=== PATIENT | female | born 1975 | race Caucasian/White ===

== ENCOUNTER → 2018-01-08 | Outpatient (CLI) | payer SELFPAY ==
[~2018-01-08] MED LIST: HYDR-1231 PO
--- NOTE | 2018-01-08 17:51 | Diagnostic Imaging Report ---
PROCEDURE: US Thyroid. TECHNIQUE: Multiple real-time grayscale images were obtained of the thyroid in various projections. INDICATION: Enlarged thyroid. COMPARISON: There are no prior studies available for comparison. FINDINGS: The thyroid gland is prominent. The right lobe measures 5.0 x 1.8 x 1.6 cm while the left lobe is estimated to be 4.3 x 1.4 x 1.3 cm (normal gland size 4-5 x 2 x 2 cm or less). Both the right and left lobes are homogeneous. There is no discrete solid or cystic mass within either lobe. However, there is a small 0.7 x 0.5 x 0.6 cm solid nodule in the mid portion of the isthmus. This finding is most likely benign. Even so, unless there are previous thyroid ultrasound examinations to demonstrate that this finding is stable, then a short-term (three-month) followup thyroid ultrasound exam should be obtained. During the course of this exam, our sonologist did note a 1.8 x 1.5 cm cystic mass in the right neck inferior to the level of the thyroid gland. There also appear to be a few dilated fluid-filled vessels in the right neck and at the corresponding level of the left neck. These findings are of uncertain etiology. I would recommend that CT of the neck be performed for further study. IMPRESSION: 1. The thyroid gland is not enlarged but prominent. There is a small subcentimeter solid nodule in the midportion of the isthmus. This finding is most likely benign. Recommendations as above. 2. CT would be recommended for further evaluation of the cystic mass in the lower neck on the right and for the fluid-filled vessels on each side of the neck. Dictated by: Dictated on workstation # [id number]
== END ==
LOC: RAD 15:01
PROVIDERS: ATTEND Nurse Practitioner Family
DX: E04.1 Nontoxic single thyroid nodule (principal)
CPT/HCPCS: 76536

== ENCOUNTER → 2020-05-19 | Outpatient (CLI) | payer OTHER ==
--- NOTE | 2020-05-19 15:13 | Diagnostic Imaging Report ---
INDICATION: Bilateral breast lumps. CORRELATION is made with prior mammograms from 04/05/2014 and 05/09/2011. 2-D and 3-D bilateral diagnostic mammography was performed with CAD. BB markers were placed at the areas of palpable abnormality in both breasts. Both breasts are heterogeneously dense, limiting the sensitivity of mammography. No dominant mass or malignant appearing microcalcifications are seen. Axillae are unremarkable. IMPRESSION: BI-RADS 0. No mammographic features suspicious for malignancy are identified. Even so, directed sonographic interrogation of the areas of palpable abnormality is recommended and will be performed today. ACR BI-RADS Category 0: Incomplete. (Needs additional imaging evaluation). Result letter will be mailed to the patient. Note: At least 10% of breast cancer is not imaged by mammography. Dictated by: Dictated on workstation # [id number]
--- NOTE | 2020-05-19 15:39 | Diagnostic Imaging Report ---
INDICATION: Bilateral breast lumps. CORRELATION is made with a diagnostic mammogram earlier the same day. Sonographic interrogation of the areas of palpable abnormality in both breasts was performed. This corresponds to the inferior aspects of both breasts approximally 6:00 locations. No sonographic abnormality is seen. No solid or cystic mass is identified within either breast. IMPRESSION: BI-RADS Category 1. No sonographic abnormality is detected. Continued clinical and self breast exams are recommended to confirm stability of the areas of palpable abnormality. ACR BI-RADS Category 1: Negative. Result letter will be mailed to the patient. Note: At least 10% of breast cancer is not imaged by mammography. Dictated by: Dictated on workstation # [id number]
== END ==
LOC: RAD 14:33
PROVIDERS: ATTEND Nurse Practitioner Family
DX: N63.10 Unspecified lump in the right breast, unspecified quadrant (principal); N63.20 Unspecified lump in the left breast, unspecified quadrant
CPT/HCPCS: 76642; 77066; G0279; 77062